=== PATIENT | female | born 1990 | race African-American/Black ===

== ENCOUNTER 2017-02-12 23:07 | Emergency (ER) | payer MEDICAID ==
[~2017-02-12] VITALS: Ht 170.2 cm; Wt 128.0 kg
[~2017-02-12 23:07] MED LIST: ALBU05 NEB
[2017-02-13 02:10] LABS: DIFFERENTIAL COMMENT 0; EOSINOPHILS % 1.7 % (0.0-5.0); HEMATOCRIT. 33.7 % (36.0-48.0); HEMOGLOBIN. 10.3 g/dL (12.0-16.0); LYMPHOCYTES % 43.4 % (20.0-50.0); MEAN CORPUSCULAR HEMOGLOBIN 22.2 pg (28.0-32.0); MEAN CORPUSCULAR HGB CONC 30.5 g/dL (31.0-37.0); MEAN CORPUSCULAR VOLUME 72.7 fL (81.0-99.0); MEAN PLATELET VOLUME 9.5 fl (7.4-10.4); MONOCYTES % 10.5 % (2.0-8.0); NEUTROPHILS % 43.4 % (40.0-76.0); PLATELET 385 x1000/uL (130-400); RED BLOOD CELL COUNT 4.64 mill/uL (4.2-5.4); RED CELL DISTRIBUTION WIDTH 18.4 % (11.6-14.6); WHITE BLOOD COUNT 10.3 x1000/uL (4.5-11.0)
[2017-02-13 02:15] LABS: CHLORIDE 105 mEq/L (98-107); INDEX HEMOLYSI 1 (1-3); INDEX ICTERIC 1 (1-4); INDEX LIPEMIC 1 (1-3)
[2017-02-13 02:16] LABS: PROTHROMBIN TIME 10.2 sec
[2017-02-13 02:24] LABS: ALANINE AMINOTRANSFERASE 35 IU/L (13-61); ALBUMIN 3.5 g/dL (3.4-5.0); ANION GAP 11; CALCIUM 8.2 mg/dL (8.5-10.1); CARBON DIOXIDE 27 mEq/L (21-32); LIPASE 213 IU/L (73-393); UREA NITROGEN BLOOD 22 mg/dL (7-21); eGFR > 60 mL/min (>60)
[2017-02-13] MEDS ORDERED: SODIUM CHLORIDE 0.9% 1,000 ML IV ONE (02:45)
[2017-02-13] MEDS ORDERED: KETOROLAC 30MG/ML VIAL IV ONE (02:45)
[2017-02-13] MEDS ORDERED: ONDANSETRON HCL 4MG/2ML VIAL IV ONE (02:45)
[2017-02-13 03:30] LABS: GLUCOSE URINE NEGATIVE (NEGATIVE); KETONES URINE NEGATIVE (NEGATIVE); LEUKOCYTE ESTERASE URINE 1+ (NEGATIVE); NITRITE URINE NEGATIVE (NEGATIVE); OCCULT BLOOD URINE NEGATIVE (NEGATIVE); PROTEIN URINE NEGATIVE (NEGATIVE); SPECIFIC GRAVITY URINE 1.017 (1.005-1.030); UROBILINOGEN URINE 0.2 E.U./dL (0.2-1.0)
[2017-02-13 03:31] LABS: CLARITY URINE SL HAZY (CLEAR); COLOR URINE YELLOW (YELLOW)
[2017-02-13 03:51] LABS: RBC URINE 0-2 /hpf (0-2); SQUAMOUS EPITHELIAL CELL URINE 1+ /lpf (RARE/1+)
[2017-02-13 03:52] LABS: BACTERIA URINE 1+
[2017-02-13] MEDS ORDERED: ACETAMINOPHEN 325MG TABLET PO ONE (07:45)
[2017-02-13] MEDS ORDERED: ONDANSETRON 4MG ODT PO ONE (07:45)
[2017-02-13 09:15] VITALS: BP 114/68
== END 2017-02-13 10:42 | disposition home or self-care (01) ==
LOC: ER 23:19
DX: R10.13 Epigastric pain (principal); J45.909 Unspecified asthma, uncomplicated; Z88.2 Allergy status to sulfonamides; Z79.899 Other long term (current) drug therapy; N39.0 Urinary tract infection, site not specified
CPT/HCPCS: 36415; 74176; 80053; 81001; 81025; 83690; 85025; 85610; 96361; 96374; 96375; 99285; J1885; J2405; J7030; Q0162

== ENCOUNTER 2017-12-22 17:58 | Emergency (ER) | payer MEDICAID ==
[~2017-12-22] VITALS: Ht 162.6 cm; Wt 115.0 kg
[2017-12-22 18:03] VITALS: BP 142/90
[2017-12-22 18:50] LABS: BASOPHILS % 0.9 % (0.0-2.0); EOSINOPHILS % 0.1 % (0.0-5.0); HEMATOCRIT. 35.4 % (36.0-48.0); HEMOGLOBIN. 11.2 g/dL (12.0-16.0); LYMPHOCYTES % 18.4 % (20.0-50.0); MEAN CORPUSCULAR HEMOGLOBIN 23.3 pg (28.0-32.0); MEAN CORPUSCULAR VOLUME 73.4 fL (81.0-99.0); MEAN PLATELET VOLUME 9.1 fl (7.4-10.4); MONOCYTES % 4.7 % (2.0-8.0); NEUTROPHILS % 75.9 % (40.0-76.0); PLATELET 452 x1000/uL (130-400); RED BLOOD CELL COUNT 4.82 mill/uL (4.2-5.4); RED CELL DISTRIBUTION WIDTH 16.9 % (11.6-14.6)
[2017-12-22 18:53] LABS: CHLORIDE 111 mEq/L (98-107)
[2017-12-22 18:55] LABS: PROTHROMBIN TIME 10.8 sec (9.4-11.6)
== END 2017-12-23 01:40 | disposition left against medical advice (07) ==
LOC: ER 18:09
DX: K52.9 Noninfective gastroenteritis and colitis, unspecified (principal); E86.0 Dehydration; E66.01 Morbid (severe) obesity due to excess calories; D72.829 Elevated white blood cell count, unspecified; J45.909 Unspecified asthma, uncomplicated; F12.10 Cannabis abuse, uncomplicated; Z88.2 Allergy status to sulfonamides
CPT/HCPCS: 36415; 80053; 83690; 85025; 85610; 99284

== ENCOUNTER 2018-01-28 23:55 | Emergency (ER) | payer MEDICAID ==
[~2018-01-28] VITALS: Ht 172.7 cm; Wt 127.0 kg
[2018-01-29] MEDS ORDERED: SODIUM CHLORIDE 0.9% 1,000 ML IV ONE (00:52)
[2018-01-29] MEDS ORDERED: MORPHINE SULFATE 4 MG/ML CPJ (NOT FOR IM USE) IV STA ×2 (00:52→03:31)
[2018-01-29] MEDS ORDERED: ONDANSETRON HCL 4MG/2ML VIAL IV STA ×2 (00:52→03:31)
[2018-01-29 02:31] LABS: HEMATOCRIT. 40.6 % (36.0-48.0); MEAN CORPUSCULAR HEMOGLOBIN 23.2 pg (28.0-32.0); MEAN CORPUSCULAR VOLUME 72.7 fL (81.0-99.0); MEAN PLATELET VOLUME 9.7 fl (7.4-10.4); PLATELET 461 x1000/uL (130-400); RED BLOOD CELL COUNT 5.59 mill/uL (4.2-5.4); RED CELL DISTRIBUTION WIDTH 16.9 % (11.6-14.6)
[2018-01-29 02:33] LABS: CHLORIDE 102 mEq/L (98-107)
[2018-01-29 02:35] LABS: INR 1.1; PROTHROMBIN TIME 10.9 sec (9.4-11.6)
[2018-01-29 02:51] LABS: CLARITY URINE TURBID (CLEAR); COLOR URINE YELLOW (YELLOW); KETONES URINE TRACE (NEGATIVE); LEUKOCYTE ESTERASE URINE 1+ (NEGATIVE); NITRITE URINE NEGATIVE (NEGATIVE); OCCULT BLOOD URINE 3+ (NEGATIVE); PH URINE 5.5 (4.5-8.0); PROTEIN URINE 2+ (NEGATIVE); SPECIFIC GRAVITY URINE 1.034 (1.005-1.030)
[2018-01-29 03:02] LABS: PLATELET ESTIMATE SLIGHTLY INCREASED
[2018-01-29] MEDS ORDERED: CEFTRIAXONE 1 G PREMIX 50 ML IV SCH (03:46)
[2018-01-29 05:15] VITALS: BP 135/81
== END 2018-01-29 05:15 | disposition home or self-care (01) ==
LOC: ER 01-29 00:28
DX: N10 Acute pyelonephritis (principal); J45.909 Unspecified asthma, uncomplicated; I10 Essential (primary) hypertension; Z88.2 Allergy status to sulfonamides
CPT/HCPCS: 36415; 76705; 80053; 81003; 83690; 85025; 85610; 87086; 96361; 96365; 96375; 96376; 99285; J0696; J2270; J2405; J7030; Z7610

== ENCOUNTER 2018-01-29 13:47 | Emergency (ER) | payer MEDICAID ==
[~2018-01-29] VITALS: Ht 170.2 cm; Wt 130.5 kg
[2018-01-29] MEDS ORDERED: SODIUM CHLORIDE 0.9% 1,000 ML IV ONE (15:13)
[2018-01-29] MEDS ORDERED: KETOROLAC 30MG/ML VIAL IV STA (15:13)
[2018-01-29] MEDS ORDERED: ONDANSETRON HCL 4MG/2ML VIAL IV STA (15:13)
[2018-01-29 16:16] LABS: CHLORIDE 102 mEq/L (98-107)
[2018-01-29 16:27] LABS: BASOPHILS % 0.3 % (0.0-2.0); EOSINOPHILS % 0.3 % (0.0-5.0); HEMOGLOBIN. 12.6 g/dL (12.0-16.0); LYMPHOCYTES % 10.9 % (20.0-50.0); MEAN CORPUSCULAR HEMOGLOBIN 23.3 pg (28.0-32.0); MEAN CORPUSCULAR VOLUME 72.4 fL (81.0-99.0); MEAN PLATELET VOLUME 9.6 fl (7.4-10.4); MONOCYTES % 6.8 % (2.0-8.0); NEUTROPHILS % 81.7 % (40.0-76.0); PLATELET 467 x1000/uL (130-400); RED BLOOD CELL COUNT 5.38 mill/uL (4.2-5.4); RED CELL DISTRIBUTION WIDTH 17.1 % (11.6-14.6)
[2018-01-29] MEDS ORDERED: ACETAMINOPHEN WITH CODEINE 300/30MG TABLET PO ONE (18:15)
[2018-01-29] MEDS ORDERED: MORPHINE SULFATE 4 MG/ML CPJ (NOT FOR IM USE) IV ONE (18:30)
[2018-01-29] MEDS ORDERED: ONDANSETRON HCL 4MG/2ML VIAL IV ONE (18:30)
[2018-01-29 18:42] LABS: CLARITY URINE TURBID (CLEAR); COLOR URINE RED (YELLOW); KETONES URINE TRACE (NEGATIVE); LEUKOCYTE ESTERASE URINE 2+ (NEGATIVE); NITRITE URINE NEGATIVE (NEGATIVE); OCCULT BLOOD URINE 3+ (NEGATIVE); PH URINE 5.5 (4.5-8.0); PROTEIN URINE 2+ (NEGATIVE); SPECIFIC GRAVITY URINE 1.032 (1.005-1.030); UROBILINOGEN URINE 0.2 E.U./dL (0.2-1.0)
[2018-01-29 20:29] VITALS: BP 137/86
== END 2018-01-29 20:46 | disposition home or self-care (01) ==
LOC: ER 14:03
DX: N39.0 Urinary tract infection, site not specified (principal); J45.909 Unspecified asthma, uncomplicated; Z88.2 Allergy status to sulfonamides; I10 Essential (primary) hypertension
CPT/HCPCS: 36415; 74176; 80053; 81003; 81025; 83690; 85025; 96361; 96374; 96375; 96376; 99285; J1885; J2270; J2405; J7030

== ENCOUNTER 2018-01-30 11:04 | Emergency (ER) | payer MEDICAID ==
[~2018-01-30] VITALS: Ht 167.6 cm; Wt 117.0 kg
[2018-01-30 12:04] LABS: KETONES URINE TRACE (NEGATIVE); LEUKOCYTE ESTERASE URINE 2+ (NEGATIVE); NITRITE URINE NEGATIVE (NEGATIVE); OCCULT BLOOD URINE 3+ (NEGATIVE); PROTEIN URINE 3+ (NEGATIVE); SPECIFIC GRAVITY URINE 1.026 (1.005-1.030); UROBILINOGEN URINE 0.2 E.U./dL (0.2-1.0)
[2018-01-30 12:05] LABS: COLOR URINE RED (YELLOW)
[2018-01-30 12:06] LABS: CLARITY URINE TURBID (CLEAR)
[2018-01-30] MEDS ORDERED: SODIUM CHLORIDE 0.9% 1,000 ML IV ONE ×2 (13:00→15:00)
[2018-01-30] MEDS ORDERED: ONDANSETRON HCL 4MG/2ML VIAL IV NR (13:00)
[2018-01-30] MEDS ORDERED: LORAZEPAM 2MG/ML CPJ IV ONE (13:45)
[2018-01-30] MEDS ORDERED: CEFTRIAXONE SODIUM 250 MG/VIAL IV ONE (13:45)
[2018-01-30] MEDS ORDERED: DOXYCYCLINE HYCLATE 100MG CAPSULE PO ONE (13:45)
[2018-01-30] MEDS: MORPHINE SULFATE 4 MG/ML CPJ (NOT FOR IM USE) IV NR ×2 (13:47→17:58)
[2018-01-30 17:25] VITALS: BP 124/75
== END 2018-01-30 17:25 | disposition home or self-care (01) ==
LOC: ER 11:14
DX: N39.0 Urinary tract infection, site not specified (principal); I10 Essential (primary) hypertension; J45.909 Unspecified asthma, uncomplicated; Z88.2 Allergy status to sulfonamides
CPT/HCPCS: 81003; 81025; 87077; 87086; 87186; 96361; 96374; 96375; 99285; J0696; J2060; J2270; J2405; J7030; Z7610